=== PATIENT | female | born 1960 | race Caucasian/White ===

== ENCOUNTER → 2016-12-10 19:09 | Outpatient (CLI) | payer BC | END | disposition home or self-care (01) | LOC: D.MAMMO 11-12 16:15 | DX: Z12.31 Encounter for screening mammogram for malignant neoplasm of breast (principal) ==

== ENCOUNTER → 2017-12-11 16:57 | Outpatient (CLI) | payer OTHER | END | disposition home or self-care (01) | LOC: D.MAMMO 16:00 | DX: Z12.31 Encounter for screening mammogram for malignant neoplasm of breast (principal) ==

== ENCOUNTER 2018-12-18 09:00 | Outpatient (CLI) | payer OTHER | END 2018-12-18 10:00 | disposition home or self-care (01) | LOC: D.MAMMO 09:00 | PROVIDERS: ATTEND Family Medicine | DX: Z12.31 Encounter for screening mammogram for malignant neoplasm of breast (principal) ==

== ENCOUNTER 2019-03-09 08:00 | Outpatient (CLI) | payer OTHER | END 2019-03-09 23:59 | disposition home or self-care (01) | LOC: D.MAMMO 08:00 | PROVIDERS: ATTEND Family Medicine | DX: R92.2 Inconclusive mammogram (principal) ==

== ENCOUNTER 2019-04-10 12:45 | Emergency (ER) | payer OTHER ==
[~2019-04-10] VITALS: Ht 160 cm; Wt 65.9 kg
[2019-04-10 12:52] VITALS: Ht 160 cm; Wt 65.9 kg
[2019-04-10] MEDS ORDERED: SYNTHROID100 MCG (12:52)
[2019-04-10] MEDS ORDERED: GLUCOPHAGE500 MG (12:52)
[2019-04-10] MEDS ORDERED: STARLIX120 MG (12:53)
[2019-04-10] MEDS ORDERED: LIPITOR40 MG (12:53)
[2019-04-10] MEDS ORDERED: GLIPIZIDE10 MG PO (12:53)
[2019-04-10] MEDS ORDERED: LISINOPRIL10 MG (12:53)
[2019-04-10 15:11] LABS: BASOPHILS 0.3 % (0-2); EOSINOPHILS 0.6 % (0-7); HEMATOCRIT 38.8 % (36.0-48.0); HEMOGLOBIN 12.6 g/dL (12-16); IMMATURE GRANULOCYTES 0.2 % (0-5); LYMPHOCYTES 11.4 % (15-50); MCH 26.6 pg (26.0-34.0); MCHC 32.5 g/dL (31.0-37.0); MEAN PLATELET VOLUME 11.8 fL (7.4-10.4); MONOCYTES 7.4 % (2-11); NEUTROPHILS 80.1 % (40-80); PLATELET COUNT 192 10x3/uL (130-400); RBC 4.73 10x6/uL (4.00-5.40); RDW 14.1 % (11.5-14.5); WBC 13.2 10x3/uL (4.8-10.8)
[2019-04-10 15:24] LABS: APTT 21.9 SECONDS (22.8-39.4); INR 1.07 (0.85-1.17); PROTIME 13.4 SECONDS (11.6-15.0)
[2019-04-10 15:26] LABS: D-DIMER-QUANTITATIVE 0.85 ug/mLFEU (0.20-0.54)
[2019-04-10 15:31] LABS: ALBUMIN 3.6 g/dL (3.4-5.0); ANION GAP 15.5 mmol/L (8-16); BILIRUBIN - TOTAL 0.96 mg/dL (0.2-1.3); CALCIUM 8.9 mg/dL (8.5-10.1); CARBON DIOXIDE 23.5 mmol/L (21.0-32.0); CREATININE - SERUM 0.9 mg/dL (0.6-1.3); PROTEIN - SERUM 7.6 g/dL (6.4-8.2)
[2019-04-10] MEDS ORDERED: VOLTAREN75 MG PO (18:44)
[2019-04-10] MEDS ORDERED: ZANAFLEX4 MG PO (18:44)
[2019-04-10 21:02] LABS: C-REACTIVE PROTEIN 5.5 mg/dL (0.0-0.9); THYROID STIMULATING HORMONE 1.25 uIU/mL (0.36-3.74)
[2019-04-10 21:33] VITALS: BP 148/99
[2019-04-10 21:48] LABS: ERYTHROCYTE SEDIMENTATION RATE 19 mm/hr (0-30)
== END 2019-04-10 21:33 | disposition home or self-care (01) ==
LOC: D.ER 12:45
PROVIDERS: Emergency Medicine; Family Medicine
DX: S76.011A Strain of muscle, fascia and tendon of right hip, initial encounter (principal); X58.XXXA Exposure to other specified factors, initial encounter; Y93.89 Activity, other specified; Y92.89 Other specified places as the place of occurrence of the external cause

== ENCOUNTER → 2019-09-23 19:25 | Outpatient (CLI) | payer OTHER ==
[2019-09-17 20:40] VITALS: BMI 29.8
[~2019-09-23 19:25] MED LIST: CYCLOBENZAPRINE10 MG PO; FOLIC ACID1 MG; GLIPIZIDE10 MG PO; GLUCOPHAGE500 MG; LIPITOR40 MG; LISINOPRIL10 MG; LISINOPRIL10 MG PO; METHOTREXATE2.5 MG; PREDNISONE10 MG PO; PROTONIX40 MG; STARLIX120 MG; SYNTHROID100 MCG; ULTRAM50 MG PO; VOLTAREN75 MG PO; ZANAFLEX4 MG PO
== END | disposition home or self-care (01) ==
LOC: D.MAMMO 09-14 11:30
PROVIDERS: ATTEND Family Medicine
DX: R92.8 Other abnormal and inconclusive findings on diagnostic imaging of breast (principal)

== ENCOUNTER 2020-05-01 10:30 | Outpatient (CLI) | payer OTHER ==
[2019-09-17 20:40] VITALS: BMI 29.8
== END 2020-05-01 11:30 | disposition home or self-care (01) ==
LOC: D.MAMMO 10:30
PROVIDERS: ATTEND Family Medicine
DX: R92.8 Other abnormal and inconclusive findings on diagnostic imaging of breast (principal)